=== PATIENT | female | born 1970 | race Caucasian/White ===

== ENCOUNTER → 2018-01-06 | Outpatient (REF) | payer BC | LOC: M SFHCLERA 19:59 | DX: R53.81 Other malaise (principal) ==

== ENCOUNTER → 2021-01-15 | Outpatient (CLI) | payer BC | LOC: M LABSMTC 11:16 | PROVIDERS: ATTEND Anesthesiology | DX: Z01.818 Encounter for other preprocedural examination (principal); Z20.822 Contact with and (suspected) exposure to COVID-19 ==

== ENCOUNTER → 2021-01-16 | Outpatient (CLI) | payer OTHER, BC ==
--- NOTE | 2021-01-17 00:08 | ECWPNPC ---
PATIENT NAME: ADOLFO HERNADEZ : 1970 GENDER: FEMALE VISIT DATE: 01/16/2021 DISCHARGE DATE: 01/16/21 1242 VISIT LOCKED DATE TIME: PHYSICIAN: DARNELL DE LA CRUZ MD RESOURCE: DARNELL DE LA CRUZ MD REASON FOR APPOINTMENT 1. PRE SEDATE FOR SPINAL TAP HISTORY OF PRESENT ILLNESS GENERAL: 50-YEAR-OLD FEMALE PATIENT WITH A HISTORY OF NEUROLOGICAL SYMPTOMS. SHE WAS SEEN BY DR. HANDY WITH A COMPLAINT OF HEADACHES, SOME UPPER EXTREMITY SYMPTOMS INCLUDING NUMBNESS AND TINGLING. DR. HANDY SENT THE PATIENT HERE TO PERFORM A SPINAL TAP TO RULE OUT MULTIPLE SCLEROSIS. FALL RISK SCREENING: SCREENING MULTIPLE FALLS DUE TO TRIPPING - NO MAJOR INJURIES, NO ED VISIT.. PAIN SCREENING: PATIENT HAS A COMPLAINT OF ACUTE OR CHRONIC PAIN :YES LOCATION OF PAIN:HEAD, NECK INTENSITY OF PAIN (SCALE OF 1 TO 10):6 WHAT DOES YOUR PAIN FEEL LIKE:THROBBING, OTHER PRESSURE DURATION:INTERMITTENT STATES SHE GETS HEADACHES OFTEN PAIN IS INCREASED BY:ACTIVITIES PAIN IS DECREASED BY: STATES NOT MUCH HELPS WITH HER HEADACHES NURSING NOTE: - - -. PAIN CENTER INTAKE QUESTIONS: DO YOU HAVE A HISTORY OF MRSA? :NO DO YOU TAKE A BLOOD THINNERS? :NO DO YOU HAVE ANY BLEEDING DISORDERS? :NO ANY NEW NUMBNESS OR WEAKNESS IN YOUR LEGS OR ARMS? :YES NUMBNESS/TINGLING TO HANDS ANY PACEMAKER,DEFIBRILLATOR, OR DORSAL COLUMN STIMULATOR? :NO DO YOU HAVE ANY RASHES OR OPEN SORES? :NO ARE YOU ALLERGIC TO IV DYE? :NO ARE YOU DIABETIC? :NO ANY NEW PROBLEMS WITH YOUR MEDICATIONS? :NO HAVE YOU RECEIVED A VACCINE IN THE PAST 30 DAYS? :YES IF SO WHAT VACCINE AND WHEN? 2ND COVID VACCINE 12/31/20 DO YOU PLAN TO RECEIVE A VACCINE IN THE NEXT 21 DAYS? :NO DO YOU NEED ANY PRESCRIPTION? :NO DO YOU TAKE ANY IMMUNOSUPPRESSIVE MEDICATIONS? :NO IS THERE A CHANCE YOU COULD BE ? :NO ARE YOU BREAST FEEDING? :NO CURRENT MEDICATIONS TAKING LEVOTHYROXINE SODIUM 100 MCG CAPSULE 1 CAPSULE ON AN EMPTY STOMACH IN THE MORNING ORALLY ONCE A DAY TAKING MULTIVITAMIN - TABLET CHEWABLE ORALLY ONCE A DAY TAKING VITAMIN B-12 100 MCG TABLET ORALLY ONCE A DAY TAKING CALCIUM 600 MG TABLET 1 TABLET WITH MEALS ORALLY TWICE A DAY TAKING ZYRTEC ALLERGY 10 MG CAPSULE 1 CAPSULE ORALLY ONCE A DAY NEEDED TAKING GLATIRAMER ACETATE 40 MG/ML SOLUTION PREFILLED SYRINGE 1 ML SUBCUTANEOUS THREE TIMES A WEEK, M, W, F TAKING TIZANIDINE HCL 4 MG TABLET 1 TABLET NEEDED ORALLY THREE TIMES A DAY TAKING LANSOPRAZOLE 30 MG CAPSULE DELAYED RELEASE 1 TABLET ORALLY BID TAKING FAMOTIDINE 40 MG TABLET TAKE ONE TABLET BY MOUTH TWICE A DAY DIRECTED ORAL TAKING DIAZEPAM 5 MG TABLET (SCHEDULE IV DRUG) TAKE ONE TABLET BY MOUTH TWICE A DAY NEEDED FOR ANXIETY MAX DAILY DOSE 2 ORAL TAKING HYDROCODONE-ACETAMINOPHEN 7.5-325 MG TABLET (SCHEDULE II DRUG) TAKE ONE TABLET BY MOUTH FOUR TIMES A DAY NEEDED FOR PAIN MAXIMUM DAILY DOSE 4 ORAL TAKING MIDODRINE HCL 2.5 MG TABLET TAKE 1 TABLET BY MOUTH PRIOR TO GETTING OUT OF BED IN THE MORNING THEN TAKE 1 TABLET AT 11/NOONTIME THEN TAKE 1 TABLET AT ABOUT 4 5 IN THE ORAL TAKING GABAPENTIN 100 MG CAPSULE TAKE THREE CAPSULES BY MOUTH THREE TIMES A DAY DIRECTED ORAL TAKING POTASSIUM CHLORIDE ER 10 MEQ TABLET EXTENDED RELEASE TAKE ONE TABLET BY MOUTH EVERY DAY DIRECTED ORAL TAKING ACYCLOVIR 400 MG TABLET TAKE ONE TABLET BY MOUTH EVERY DAY OR DIRECTED ORAL TAKING TOPIRAMATE 50 MG TABLET TAKE ONE TABLET BY MOUTH TWICE A DAY DIRECTED ORAL TAKING TRAZODONE HCL 50 MG TABLET TAKE ONE TABLET BY MOUTH AT BEDTIME FOR SLEEP ORAL TAKING DEPAKOTE 250 MG TABLET DELAYED RELEASE 1 TABLET ORALLY TWICE A DAY, 1 IN AM, 2 IN PM NOT-TAKING MAXALT 10 MG TABLET 1 TABLET NEEDED ONE TIME ORALLY ONCE A DAY NOT-TAKING BACLOFEN 10 MG TABLET (PRIOR AUTH: RX REF#:[id number]) ORAL NOT-TAKING PAROXETINE HCL 20 MG TABLET (PRIOR AUTH: RX REF#:[id number]) ORAL NOT-TAKING FLONASE ALLERGY RELIEF 50 MCG/ACT SUSPENSION 2 SPRAY IN EACH NOSTRIL NASALLY ONCE A DAY NOT-TAKING ONDANSETRON 4 MG TABLET DISPERSIBLE 1 TABLET (ODT) ON THE TONGUE AND ALLOW TO DISSOLVE ORALLY EVERY 8 HRS NEEDED FOR NAUSEA/VOMITING MEDICATION LIST REVIEWED AND RECONCILED WITH THE PATIENT PAST MEDICAL HISTORY MS GERD HYPOTHYROID CHRONIC PAIN MIGRAINES ALLERGIES TIGAN: HIVES - ALLERGY ULTRAM: HALLUCINATIONS - ALLERGY SURGICAL HISTORY GASTRIC BYPASS 09/2014 HERNIA REPAIR X2 2016 GALLBLADDER REMOVAL (EMERGENCY) 2017 KADIE-EN-Y HEPATICOJEJUNOSTOMY 2018 ABLATION 2014 FAMILY HISTORY FATHER: , BOWEL PERFORATION, DIAGNOSED WITH UNSPECIFIED HEART DISEASE MOTHER: , EMPHYSEMA, COPD, HYPERTENSION, UNSPECIFIED HEART DISEASE 5 BROTHER(S) . 3DAUGHTER(S) . 2 DAUGHTERS - MIGRAINES1 DAUGHTER - DRUG ADDICTION. SOCIAL HISTORY GENERAL: TOBACCO USE ARE YOU A:NONSMOKER VAPORNO E-CIGARETTENO LATEX QUESTIONNAIRE LATEX ALLERGY : HAVE YOU EVER DEVELOPED ANY TYPE OF REACTION AFTER HANDLING LATEX PRODUCTS SUCH RUBBER GLOVES, CONDOMS, DIAPHRAGMS, BALLOONS, SOCKS, OR UNDERWEAR?NO LATEX ALLERGY : HAVE YOU EVER DEVELOPED ANY TYPE OF REACTION DURING OR AFTER DENTAL APPOINTMENT, VAGINAL/RECTAL EXAMINATION, SURGICAL PROCEDURE, OR ANY OTHER EXPOSURE?NO LATEX RISK : HAVE YOU EVER HAD ANY DIFFICULTY BREATHING OR HIVES AFTER EATING OR HANDLING ANY FRUITS, OR VEGETABLES; SUCH KIWI, BANANAS, STONE FRUITS, OR CHESTNUTSNO LATEX RISK : DO YOU HAVE A PREVIOUS PERSONAL HISTORY OF MORE THAN NINE SURGERIES, SPINA BIFIDA, OR REPEATED CATHERIZATIONS? NO LATEX RISK : ARE YOU FREQUENTLY EXPOSED TO LATEX PRODUCTS IN YOUR OCCUPATION?NO DATE ASKED : 01/16/2021 ALCOHOL USE: NO. ALCOHOL SCREENING DID YOU HAVE A DRINK CONTAINING ALCOHOL IN THE PAST YEAR?NO POINTS0 INTERPRETATIONNEGATIVE RECREATIONAL DRUG USE DRUG USE?NO HIV / HEP-C SCREENING HIV TEST OFFERED TO PATIENT:YES DATE OFFERED:12/16/2017 TEST ACCEPTED:NO HEP-C TEST OFFERED TO PATIENT:NO REASON:PATIENT DECLINED BROCHURE PROVIDED TO PATIENTNO LEARNING BARRIERS / SPECIAL NEEDS BARRIERS TO LEARNING?NO HEARING IMPAIRED?NO VISION IMPAIRED?YES COGNITIVELY IMPAIRED?NO READINESS TO LEARN?YES LEARNING PREFERENCES?NO LEARNING CAPABILITIES PRESENT?YES EMOTIONAL BARRIERS?YES SPECIAL DEVICES?NO RN SURGERY ICU NEEDED?NO HOSPITALIZATION/MAJOR DIAGNOSTIC PROCEDURE SURGERY RELATED REVIEW OF SYSTEMS GLAUCOMA: NOTHYROID DISEASE: YESHYPERTENSION: NOHEART DISEASE: NOLUNG DISEASE: NODIABETES: NOGI DISEASE: GERDLIVER DISEASE: NO KIDNEY DISEASE: NOSTERIOD USE: NONEUROLOGICAL DISEASE: NOBACK PROBLEMS: YES, PAINEXTREMITIES: YES, TINGLING UPPER EXTREMITIESGENITOURINARY: NOBLEEDING DISORDER: NOASA CLASS: IIAIRWAY CLASS: II. VITAL SIGNS WT 104.2 LBS, HT 61 IN, BMI 19.69 INDEX, BP 115/71 MM HG, HR 67 /MIN, RR 18 /MIN, TEMP 98.0 F, OXYGEN SAT % 100%, SAFE IN ENV? (Y/N) YES, NA INITIALS OH 11:25, REVIEWED BY: Laith DESOUZA RN. EXAMINATION GENERAL EXAMINATION: THE PATIENT IS ALERT, ORIENTED TIMES THREE AND COOPERATIVE. LUNGS ARE CLEAR TO AUSCULTATION. HEART SHOWS REGULAR RHYTHM, NO MURMURS AND NO GALLOPS. MRI OF THE BRAIN DATED 09/15/2020 SHOWS SOME GLIOSIS, BUT THERE IS NO INTRACRANIAL MASSES. ASSESSMENTS MULTIPLE SCLEROSIS - G35 (PRIMARY), RULE OUT TREATMENT MULTIPLE SCLEROSIS OXYGEN AT 2 LITERS PER NASAL CANNULA (ORDERED FOR 02/16/2021) IV LACTATED RINGER'S AT [facility] (ORDERED FOR 02/16/2021) MED: VERSED 1MG IV MIDAZOLAM (ORDERED FOR 02/16/2021) MED: PAIN BENADRYL 25MG IV DIPHENHYDRAMINE (ORDERED FOR 02/16/2021) MEDICATION: FENTANYL CITRATE 25MCG IV (ORDERED FOR 02/16/2021) NOTES: PRINTED AND REVIEWED INFORMATION ON SPINAL TAP PROCEDURE. ALSO REVIEWED PRE-PROCEDURE INSTRUCTIONS. PATIENT VERBALIZED AN UNDERSTANDING. Laith DESOUZA RN. CLINICAL NOTES: I DISCUSSED ALTERNATIVES WITH MS. HERNADEZ. WE AGREE ON DOING A SPINAL TAP TO SEE IF WE CAN HELP ASSESSING HER CONDITION. THIS WILL BE DONE WITH IV SEDATION DUE TO ANXIETY AND DISCOMFORT ASSOCIATED WITH THE PROCEDURE. THE PATIENT IS AWARE THAT I DO NOT SEE THE RESULTS OF THIS TEST AND THAT SHE HAS TO FOLLOW WITH DR. HANDY. THE PATIENT REPORTS UNDERSTANDING AND AGREES WITH THE PLAN. I, ABNER ALBRARAN, DOCUMENTED THE ABOVE INFORMATION ACTING A SCRIBE FOR DR. DE LA CRUZ. I HAVE REVIEWED THE ABOVE DOCUMENT, WRITTEN BY ABNER ALBARRAN, AIRPORT SECURITY SCREENER, AND I VERIFY THAT IT IS ACCURATE. OTHERS NOTES: LUMBAR PUNCTURE MATERIAL WAS PRINTED. PROCEDURE CODES FA211 ESTABILISHED PATIENT [facility] CHARGE [id number] OFFICE/OUTPATIENT VISIT EST DISPOSITION & COMMUNICATION FOLLOW UP OKAY TO BOOK (REASON: SPINAL TAP) ELECTRONICALLY SIGNED BY DARNELL DE LA CRUZ MD, MD ON 01/16/2021 AT 04:20 PM EDT DISCLAIMER : THIS IS A VISIT SUMMARY EXTRACTED FROM THE [facility] CHART. IT IS NOT A COPY OF THE [facility] PROGRESS NOTE. MTDD
== END ==
LOC: M PAIN 11:15
PROVIDERS: ATTEND Anesthesiology
DX: G35 Multiple sclerosis (principal); K21.9 Gastro-esophageal reflux disease without esophagitis; E03.9 Hypothyroidism, unspecified; G43.909 Migraine, unspecified, not intractable, without status migrainosus; Z98.84 Bariatric surgery status; Z88.5 Allergy status to narcotic agent; Z88.8 Allergy status to other drugs, medicaments and biological substances; Z79.899 Other long term (current) drug therapy

== ENCOUNTER → 2021-01-20 | Outpatient (CLI) | payer OTHER, BC ==
[~2021-01-20] MED LIST: LIDOCAINE 1% SDV 30ML VIAL As Ordered ONE; MIDAZOLAM INJ 2MG/2ML VIAL (J2250 PER 1MG) As Ordered ONE; diphenhydrAMINE 50MG/ML VIAL (J1200) As Ordered ONE; fentaNYL 100 MCG/2 ML INJECTION (J3010) As Ordered ONE
[2021-01-20 15:36] LABS: CSF TUBE# GLU TUBE 1; CSF TUBE# TP TUBE 1; GLUCOSE CSF 55 MG/DL (40-75); TOTAL PROTEIN,CSF 27 MG/DL (15-45)
[2021-01-20 16:42] LABS: APPEARANCE, CSF CLEAR (CLEAR); COLOR, CSF COLORLESS (COLORLESS); CSF TUBE# CELL CNT TUBE 3
--- NOTE | 2021-01-22 01:44 | ECWPNPC ---
PATIENT NAME: ADOLFO HERNADEZ : 1970 GENDER: FEMALE VISIT DATE: 01/20/2021 DISCHARGE DATE: 01/20/21 1510 VISIT LOCKED DATE TIME: PHYSICIAN: DARNELL DE LA CRUZ MD RESOURCE: DARNELL DE LA CRUZ MD REASON FOR APPOINTMENT 1. SPINAL TAP HISTORY OF PRESENT ILLNESS GENERAL: -. FALL RISK SCREENING: SCREENING : NO FALLS REPORTED IN THE LAST YEAR. PAIN SCREENING: PATIENT HAS A COMPLAINT OF ACUTE OR CHRONIC PAIN :YES LOCATION OF PAIN:HEAD, LOW BACK INTENSITY OF PAIN (SCALE OF 1 TO 10):8 WHAT DOES YOUR PAIN FEEL LIKE:ACHING, THROBBING DURATION:INTERMITTENT PAIN IS INCREASED BY:ACTIVITIES PAIN IS DECREASED BY: RESTING NURSING NOTE: -. PAIN CENTER INTAKE QUESTIONS: DO YOU HAVE A HISTORY OF MRSA? :NO DO YOU TAKE A BLOOD THINNERS? :NO DO YOU HAVE ANY BLEEDING DISORDERS? :NO ANY NEW NUMBNESS OR WEAKNESS IN YOUR LEGS OR ARMS? :NO ANY PACEMAKER,DEFIBRILLATOR, OR DORSAL COLUMN STIMULATOR? :NO DO YOU HAVE ANY RASHES OR OPEN SORES? :NO ARE YOU ALLERGIC TO IV DYE? :NO ARE YOU DIABETIC? :NO ANY NEW PROBLEMS WITH YOUR MEDICATIONS? :NO HAVE YOU RECEIVED A VACCINE IN THE PAST 30 DAYS? :YES IF SO WHAT VACCINE AND WHEN? #2 COVID VACCINE 12/31/20 MODERNA, LEFT DELTOID #1 COVID 30 DAYS PRIOR @ [facility] DO YOU PLAN TO RECEIVE A VACCINE IN THE NEXT 21 DAYS? :NO DO YOU TAKE ANY IMMUNOSUPPRESSIVE MEDICATIONS? :YES COPAXONE FOR MS, INJECTION 3 X/WEEK, LAST DOSE TUESDAY, YESTERDAY ANY HISTORY OF SEIZURES? :NO ANY HISTORY OF CARDIAC ISSUES OR EVENTS? :NO DO YOU HAVE ANY KIDNEY OR LIVER DISEASE? :NO DO YOU HAVE SLEEP APNEA? :NO ANY RECENT HEAD INJURY? :NO DO YOU HAVE ANY NEW INFECTIONS? :NO IS THERE A CHANCE YOU COULD BE ? :NO ARE YOU BREAST FEEDING? :NO WHEN DID YOU LAST EAT? : 01/19/21 WHEN DID YOU LAST DRINK? : 01/19/21 6PM WHAT DID YOU LAST DRINK? : SODA AND TEA NAME OF PERSON DRIVING YOU HOME? : TONY DO YOU HAVE ANY OTHER QUESTIONS OR CONCERNS? : - CURRENT MEDICATIONS TAKING LEVOTHYROXINE SODIUM 100 MCG CAPSULE 1 CAPSULE ON AN EMPTY STOMACH IN THE MORNING ORALLY ONCE A DAY TAKING MULTIVITAMIN - TABLET CHEWABLE ORALLY ONCE A DAY TAKING VITAMIN B-12 100 MCG TABLET ORALLY ONCE A DAY TAKING CALCIUM 600 MG TABLET 1 TABLET WITH MEALS ORALLY TWICE A DAY TAKING ZYRTEC ALLERGY 10 MG CAPSULE 1 CAPSULE ORALLY ONCE A DAY NEEDED TAKING GLATIRAMER ACETATE 40 MG/ML SOLUTION PREFILLED SYRINGE 1 ML SUBCUTANEOUS THREE TIMES A WEEK, M, W, F, NOTES: 01/19/21 TAKING TIZANIDINE HCL 4 MG TABLET 1 TABLET NEEDED ORALLY THREE TIMES A DAY, NOTES: NONE LATELY TAKING LANSOPRAZOLE 30 MG CAPSULE DELAYED RELEASE 1 TABLET ORALLY BID TAKING FAMOTIDINE 40 MG TABLET TAKE ONE TABLET BY MOUTH TWICE A DAY DIRECTED ORAL TAKING DIAZEPAM 5 MG TABLET (SCHEDULE IV DRUG) TAKE ONE TABLET BY MOUTH TWICE A DAY NEEDED FOR ANXIETY MAX DAILY DOSE 2 ORAL , NOTES: NONE LATELY TAKING HYDROCODONE-ACETAMINOPHEN 7.5-325 MG TABLET (SCHEDULE II DRUG) TAKE ONE TABLET BY MOUTH FOUR TIMES A DAY NEEDED FOR PAIN MAXIMUM DAILY DOSE 4 ORAL , NOTES: NONE LATELY TAKING MIDODRINE HCL 2.5 MG TABLET TAKE 1 TABLET BY MOUTH PRIOR TO GETTING OUT OF BED IN THE MORNING THEN TAKE 1 TABLET AT 11/NOONTIME THEN TAKE 1 TABLET AT ABOUT 4 5 IN THE ORAL TAKING GABAPENTIN 100 MG CAPSULE TAKE THREE CAPSULES BY MOUTH THREE TIMES A DAY DIRECTED ORAL , NOTES: 01/19/21 TAKING POTASSIUM CHLORIDE ER 10 MEQ TABLET EXTENDED RELEASE TAKE ONE TABLET BY MOUTH EVERY DAY DIRECTED ORAL TAKING ACYCLOVIR 400 MG TABLET TAKE ONE TABLET BY MOUTH EVERY DAY OR DIRECTED ORAL TAKING TOPIRAMATE 50 MG TABLET TAKE ONE TABLET BY MOUTH TWICE A DAY DIRECTED ORAL TAKING TRAZODONE HCL 50 MG TABLET TAKE ONE TABLET BY MOUTH AT BEDTIME FOR SLEEP ORAL , NOTES: NONE LATELY TAKING DEPAKOTE 250 MG TABLET DELAYED RELEASE 1 TABLET ORALLY TWICE A DAY, 1 IN AM, 2 IN PM NOT-TAKING MAXALT 10 MG TABLET 1 TABLET NEEDED ONE TIME ORALLY ONCE A DAY NOT-TAKING BACLOFEN 10 MG TABLET (PRIOR AUTH: RX REF#:[id number]) ORAL NOT-TAKING PAROXETINE HCL 20 MG TABLET (PRIOR AUTH: RX REF#:[id number]) ORAL NOT-TAKING FLONASE ALLERGY RELIEF 50 MCG/ACT SUSPENSION 2 SPRAY IN EACH NOSTRIL NASALLY ONCE A DAY NOT-TAKING ONDANSETRON 4 MG TABLET DISPERSIBLE 1 TABLET (ODT) ON THE TONGUE AND ALLOW TO DISSOLVE ORALLY EVERY 8 HRS NEEDED FOR NAUSEA/VOMITING MEDICATION LIST REVIEWED AND RECONCILED WITH THE PATIENT PAST MEDICAL HISTORY MS GERD HYPOTHYROID CHRONIC PAIN MIGRAINES ALLERGIES TIGAN: HIVES - ALLERGY ULTRAM: HALLUCINATIONS - ALLERGY SOCIAL HISTORY GENERAL: TOBACCO USE ARE YOU A:NONSMOKER VAPORNO E-CIGARETTENO LATEX QUESTIONNAIRE LATEX ALLERGY : HAVE YOU EVER DEVELOPED ANY TYPE OF REACTION AFTER HANDLING LATEX PRODUCTS SUCH RUBBER GLOVES, CONDOMS, DIAPHRAGMS, BALLOONS, SOCKS, OR UNDERWEAR?NO LATEX ALLERGY : HAVE YOU EVER DEVELOPED ANY TYPE OF REACTION DURING OR AFTER DENTAL APPOINTMENT, VAGINAL/RECTAL EXAMINATION, SURGICAL PROCEDURE, OR ANY OTHER EXPOSURE?NO DATE ASKED : 01/16/2021 LATEX RISK : HAVE YOU EVER HAD ANY DIFFICULTY BREATHING OR HIVES AFTER EATING OR HANDLING ANY FRUITS, OR VEGETABLES; SUCH KIWI, BANANAS, STONE FRUITS, OR CHESTNUTSNO LATEX RISK : DO YOU HAVE A PREVIOUS PERSONAL HISTORY OF MORE THAN NINE SURGERIES, SPINA BIFIDA, OR REPEATED CATHERIZATIONS? NO LATEX RISK : ARE YOU FREQUENTLY EXPOSED TO LATEX PRODUCTS IN YOUR OCCUPATION?NO ALCOHOL USE: NO. ALCOHOL SCREENING DID YOU HAVE A DRINK CONTAINING ALCOHOL IN THE PAST YEAR?NO POINTS0 INTERPRETATIONNEGATIVE RECREATIONAL DRUG USE DRUG USE?NO HIV / HEP-C SCREENING HIV TEST OFFERED TO PATIENT:YES DATE OFFERED:12/16/2017 TEST ACCEPTED:NO HEP-C TEST OFFERED TO PATIENT:NO REASON:PATIENT DECLINED BROCHURE PROVIDED TO PATIENTNO LEARNING BARRIERS / SPECIAL NEEDS BARRIERS TO LEARNING?NO HEARING IMPAIRED?NO VISION IMPAIRED?YES COGNITIVELY IMPAIRED?NO READINESS TO LEARN?YES LEARNING PREFERENCES?NO LEARNING CAPABILITIES PRESENT?YES EMOTIONAL BARRIERS?YES SPECIAL DEVICES?NO FABRIC WORKER SUPERVISOR NEEDED?NO VITAL SIGNS WT 104.0 LBS, HT 61 IN, BMI 19.65 INDEX, BP 114/61 MM HG, HR 55 /MIN, RR 18 /MIN, TEMP 98.0 F, OXYGEN SAT % 97%, NA INITIALS AW 1141, REVIEWED BY: EM. EXAMINATION GENERAL: A HISTORY AND PHYSICAL EXAM ON THE PATIENT WAS DONE ON 01/16/2021 (DATE OF ORIGINAL ASSESSMENT) IN PREPARATION OF SURGERY/PROCEDURE. I HAVE NOW REASSESSED THIS PATIENT'S HEALTH STATUS AND PERFORMED AN UPDATED EXAM TODAY. ALL CHANGES IN THE PATIENT'S HISTORY, PHYSICAL EXAM, PRE-EXISTING CONDITONS, AND INDICATIONS/CONTRAINDICATIONS TO THE PLANNED PROCEDURE AND ANESTHESIA ARE DOCUMENTED AND EVALUATED BELOW. I ATTEST TO THE ADEQUACY AND APPROPRIATENESS OF MY ASSESSMENT, AND CONFIRM THE NECESSITY FOR THE PLANNED PROCEDURE. THE PATIENT IS ALERT, ORIENTED TIMES THREE AND COOPERATIVE. LUNGS ARE CLEAR TO AUSCULTATION. HEART SHOWS REGULAR RHYTHM, NO MURMURS AND NO GALLOPS. ASSESSMENTS MULTIPLE SCLEROSIS - G35 (PRIMARY), RULE OUT TREATMENT MULTIPLE SCLEROSIS COMPLETION OF PROCEDURAL VISIT WHEN MEETS CRITERIA MEDICATION: FENTANYL CITRATE 25MCG [facility] 01/20/2021 1:43:51 PM > VERIFIED LINDA DAHLITA 01/20/2021 2:50:14 PM > 25MCG ADMINISTERED AT 1422 MED: VERSED 1MG IV MIDAZOLAMFURM,[facility] 01/20/2021 1:44:52 PM > VERIFIED LINDA DAHLITA 01/20/2021 2:51:02 PM > 1MG ADMINISTER @ 1407 OXYGEN AT 2 LITERS PER NASAL CANNULAFURM,[facility] 01/20/2021 3:38:23 PM > 02 2L N/C APPLIED AT 1340. OFF AT 1435. IV LACTATED RINGER'S AT [facility] 01/20/2021 1:10:14 PM > #22 IV STARTED ON FIRST ATTEMPT RIGHT HAND. PATIENT TOLERATED IV START WELL. CIERRA DAHL 01/20/2021 2:51:34 PM > 300ML TOTAL ADMINISTERED MED: PAIN BENADRYL 25MG IV DIPHENHYDRAMINERM,[facility] 01/20/2021 1:45:33 PM > VERIFIED HESHAMCIERRA 01/20/2021 1:48:08 PM > ADMINISTERED PROCEDURES PAIN NURSING RECORD PROCEDURE IN ROOM 1335, PHYSICIAN IN ROOM 1405, START 1422, FINISH 1433, PHYSICIAN OUT OF ROOM 1435, OUT OF ROOM 1440, ECG NORMAL SINUS SINUS GABBI 49-59. PT ASYMPTOMATIC., PATIENT SHIELDED N/A, SAFETY STRAP N/A, PREP BETADINE DR. DE LA CRUZ, DRESSING TEGADERM DR. DE LA CRUZ LOC: 1335 ALERT, ORIENTED 1410 DROWSY, RESPONDS APPROPRIATELY 1440 1. ALERT, ORIENTED RESP: 1335 1. REGULAR, NO DYSPNEA, 1410 1. REGULAR, NO DYSPNEA, 1440, 1. REGULAR, NO DYSPNEA COLOR: 1335 1 PINK 1410 , 1. PINK 1440, 1. PINK SKIN: 1335 1. WARM, DRY 1410, 1. WARM, DRY 1440 , 1. WARM, DRY POSITION: 3. LATERAL LEFT LYING , PATY MEYER 01/20/2021 2:18:22 PM > MOVED TO RIGHT LATERAL LYING POSITION PER DR DE LA CRUZ'S REQUEST. VITALS: PATY MEYER 01/20/2021 1:35:25 PM > 130/69 HR 57 16 100% 2L N/C , PATY MEYER 01/20/2021 1:40:52 PM > 126/64 HR 55 16 100% 2L N/C , PATY MEYER 01/20/2021 1:45:49 PM > 135/60 HR 57 16 100% 2L N/C , PATY MEYER 01/20/2021 1:50:58 PM > 142/63 HR 55 16 100% 2L N/C , PATY MEYER 01/20/2021 1:55:02 PM > 145/67 HR 49 16 100% 2L N/C , PATY MEYER 01/20/2021 2:00:49 PM > 137/63 HR 55 16 100% 2L N/C , PATY MEYER 01/20/2021 2:05:18 PM > 136/61 HR 51 16 100% 2L N/C , PATY MEYER 01/20/2021 2:10:15 PM > 130/68 HR 55 16 100% 2L N/C , PATY MEYER 01/20/2021 2:15:04 PM > 127/68 HR 53 16 100% 2L N/C , PATY MEYER 01/20/2021 2:20:34 PM > 130/61 HR 51 16 100% 2L N/C , PATY MEYER 01/20/2021 2:25:31 PM > 119/59 HR 54 16 100% 2L N/C , PATY MEYER 01/20/2021 2:30:18 PM > 106/56 HR 52 16 100% 2L N/C , PATY MEYER 01/20/2021 2:35:36 PM > 120/60 HR 52 16 100% 2L N/C , PATY MEYER 01/20/2021 2:40:41 PM > 111/56 HR 54 16 100% R/A , PATY MEYER 01/20/2021 2:55:12 PM > 118/65 HR 57 16 100% R/A COMPLETION OF PROCEDURE APPOINTMENT: POST PAIN 8 PT COMPLAINS OF HER BASELINE HEADACHE /, DRESSING SITE DRY AND INTACT, IV DISCONTINUED, SITE CLEAR, CATHETER INTACT, GAIT FROM PROCEDURE ROOM TO POST CARE AREA VIA STRETCHER. PT TO CAR VIA WHEELCHAIR. PT ABLE TO STAND WITHOUT DIFFICULTY., TEACHING COMPLETED, PATIENT ACKNOWLEDGES UNDERSTANDING YES POST CARE INSTRUCTIONS REVIEWED WITH PATIENT AND FRIEND., PROCEDURE APPOINTMENT COMPLETED AT 1452 PRE PROCEDURE DIAGNOSIS NEUROLOGICAL SYMPTOMS, RULE OUT MULTIPLE SCLEROSIS POST PROCEDURE DIAGNOSIS NEUROLOGICAL SYMPTOMS, RULE OUT MULTIPLE SCLEROSIS PROCEDURE SPINAL TAP PRE PROCEDURE NOTE THE PATIENT HAS A HISTORY OF NEUROLOGICAL SYMPTOMS. THE PATIENT WAS REFERRED HERE BY DR. HANDY FOR A SPINAL TAP TO RULE OUT MULTIPLE SCLEROSIS. THE PATIENT WAS INTERVIEWED, EXAMINED AND TREATMENT QUESTIONNAIRES REVIEWED. THE PROCEDURE, RISKS AND BENEFITS WERE DISCUSSED WITH THE PATIENT. I DISCUSSED WITH THE PATIENT THAT I WILL NOT RECEIVE THE RESULTS FROM THIS TEST AND THAT THEY WILL HAVE TO FOLLOW UP WITH DR. HANDY FOR THE RESULTS. THE PATIENT WOULD LIKE TO MOVE FORWARD WITH IV SEDATION DUE TO ANXIETY AND DISCOMFORT ASSOCIATED WITH THE PROCEDURE. THE PATIENT DENIES UNEXPLAINABLE, WEIGHT LOSS, FEVER, CHILLS, OR CHANGES IN URINARY OR BOWEL CONTROL. THE PATIENT IS COVID-19 NEGATIVE DESCRIPTION OF PROCEDURE AFTER CONSENT WAS TAKEN, THE PATIENT WAS BROUGHT TO THE PROCEDURE ROOM AND PLACED IN THE RIGHT LATERAL POSITION. THE LUMBOSACRAL AREA WAS CLEANED WITH BETADINE SOLUTION AND DRAPED ASEPTICALLY. THE PROCEDURE WAS DONE UNDER STERILE CONDITIONS. A TIMEOUT WAS PERFORMED WHERE THE CONSENTED SITE WAS VERIFIED WITH EVERYONE IN THE ROOM. LOCAL INFILTRATE 1% LIDOCAINE WAS USED TO NUMB THE SKIN AND SUBCUTANEOUS TISSUE BELOW IT AT THE APPROXIMATELY THE L4-L5 INTERSPACE. A 22-GAUGE QUINCKE NEEDLE WAS ADVANCED UNTIL THE DURA WAS FELT AND CSF WAS FREE-FLOWING. THERE WAS NO BLOOD RETURN ENCOUNTERED. NO PARESTHESIA WAS ENCOUTERED. OPENING PRESSURE WAS MEASURED AT 20 CM OF WATER. 4 VIALS OF 3 ML OF CSF WAS COLLECTED. CSF WAS CLEAR. CSF WAS SENT FOR STUDIES ORDERED BY THE REFERRING PHYSICIAN. VITAL SIGNS WERE STABLE. THERE WERE NO COMPLICATIONS. ESTIMATED BLOOD LOSS WAS LESS THAN 5 ML. THE PATIENT WAS SENT TO THE RECOVERY ROOM, MOVING THE EXTREMITIES AND DOING WELL. THE PATIENT RECEIVED VERSED 1 MG AND FENTANYL 50 MCG AND BENADRYL 25 MG IV IN DIVIDED DOSES. FACE TO FACE START TIME: 1407 FACE TO FACE END TIME: 1445 TOTAL FACE TO FACE TIME: 38 MINUTES. POST PROCEDURE NOTE I DISCUSSED THE PROCEDURE WITH THE PATIENT. I WILL SEND THE CSF FOR STUDIES. THE PATIENT WILL FOLLOW UP WITH . THE PATIENT WILL CALL OUR OFFICE NEEDED. I, ABNER ALBARRAN, DOCUMENTED THE ABOVE INFORMATION ACTING A SCRIBE FOR DR. DE LA CRUZ. I HAVE REVIEWED THE ABOVE DOCUMENT, WRITTEN BY ABNER ALBARRAN, SCRIBE, AND I VERIFY THAT IT IS ACCURATE. PROCEDURE CODES 68521 SPINAL FLUID TAP DIAGNOSTIC 58672 MOD SED SAME PHYS/QHP 5/>YRS 17532 MOD SED SAME PHYS/QHP EA DISPOSITION & COMMUNICATION FOLLOW UP FOLLOW UP WITH NEUROLOGIST (REASON: CALL OUR OFFICE IF NEEDED) ELECTRONICALLY SIGNED BY DARNELL DE LA CRUZ MD, MD ON 01/21/2021 AT 04:32 PM EDT DISCLAIMER : THIS IS A VISIT SUMMARY EXTRACTED FROM THE [facility] CHART. IT IS NOT A COPY OF THE [facility] PROGRESS NOTE. LAKISHA
== END ==
LOC: M PAIN 11:40
PROVIDERS: ATTEND Anesthesiology
DX: G35 Multiple sclerosis (principal); K21.9 Gastro-esophageal reflux disease without esophagitis; E03.9 Hypothyroidism, unspecified; G43.909 Migraine, unspecified, not intractable, without status migrainosus; Z88.8 Allergy status to other drugs, medicaments and biological substances; Z79.899 Other long term (current) drug therapy
CPT/HCPCS: 36415; 62270; 82784; 82945; 83916; 84157; 87070; 87102; 87205; 87252; 87483; 88108; 88313; 89050; 99152; 99153; J1200; J2250; J3010